=== PATIENT | male | born 1965 | race Caucasian/White ===

== ENCOUNTER 2023-06-16 05:18 | Inpatient (IN) | payer OTHER ==
[2023-06-09 11:56] LABS: BILIRUBIN,URINE NEGATIVE (Neg); CLARITY,URINE CLEAR (Clear); COLOR,URINE YELLOW (Yellow); GLUCOSE, URINE 250 mg/dl (Neg); KETONES,URINE TRACE mg/dl (Neg); LEUKOCYTE ESTERASE ,URINE NEGATIVE (Neg); NITRITES, URINE NEGATIVE (Neg); OCCULT BLOOD,URINE NEGATIVE (Neg); PH,URINE 7.5 (4.8-8.0); PROTEIN,URINE NEGATIVE (Neg); UROBILINOGEN,URINE 0.2 E.U/dL (0.2-1.0)
[2023-06-09 12:00] LABS: UA COLLECTION TYPE VOIDED
[2023-06-09 12:06] LABS: BASOPHILS # (AUTO) 0.1 X10'3 (0-0.2); EOSINOPHILS # (AUTO) 0.2 X10'3 (0-0.9); EOSINOPHILS % (AUTO) 2.7 % (0-6); LYMPHOCYTES # (AUTO) 0.9 X10'3 (1.1-4.8); MEAN CORPUSCULAR HEMOGLOBIN 32.4 PG (27.0-31.0); MEAN CORPUSCULAR HGB CONC 34.4 g/dL (33.0-36.5); MEAN CORPUSCULAR VOLUME 94.1 FL (78-98); MEAN PLATELET VOLUME 7.4 FL (7.4-10.4); MONOCYTES # (AUTO) 0.5 X10'3 (0-0.9); MONOCYTES % (AUTO) 8.4 % (2-12); NEUTROPHILS # (AUTO) 3.9 X10'3 (1.8-7.7); NEUTROPHILS % (AUTO) 71.9 % (42-75); PRE OP HEMATOCRIT 44.1 % (42.0-52.0); PRE OP HEMOGLOBIN 15.2 g/dL (14.0-17.9); PRE OP PLATELET COUNT 238 X10'3 (140-440); PRE OP WHITE BLOOD COUNT 5.5 10'3 (4.8-10.8); RED BLOOD COUNT 4.68 X10'6 (4.70-6.10); RED CELL DISTRIBUTION WIDTH 12.9 % (11.5-14.5)
[2023-06-09 12:26] LABS: PRE OP PROTIME 10.8 SECONDS (9.0-12.0)
[2023-06-09 12:31] LABS: ALBUMIN 3.3 G/DL (3.4-5.0); ALBUMIN/GLOBULIN RATIO 0.8 (1.1-1.5); ALKALINE PHOSPHATASE 68 IU/L (46-116); BLOOD UREA NITROGEN 13 MG/DL (7-18); BUN/CREATININE RATIO 10.4 (10.0-20.0); CALCIUM 9.2 MG/DL (8.5-10.1); CHLORIDE 101 MMOL/L (99-107); CREATININE 1.25 MG/DL (0.60-1.10); PRE OP ALT 34 U/L (30-65); PRE OP ANION GAP 9 (8-16); PRE OP AST 19 U/L (10-37); PRE OP BILIRUB, TOTAL 0.5 MG/DL (0.0-1.0); PRE OP POTASSIUM 3.7 MMOL/L (3.4-5.1); PRE OP SODIUM 138 MMOL/L (135-145); TOTAL CARBON DIOXIDE 27.6 MMOL/L (24-32); TOTAL PROTEIN 7.5 G/DL (6.4-8.2); eGFR 59 ML/MIN
[2023-06-09 13:02] LABS: PRE OP GLUCOSE 202 MG/DL (70-104)
[~2023-06-16] VITALS: Ht 182.9 cm; Wt 133.7 kg
[2023-06-16] VITALS (31 sets, daily range): BP systolic 100–156; BP diastolic 43–80; PULSE 53–69; RESP 12–16; TEMP 97.1–99.3; O2SAT 92–98
[~2023-06-16 05:18] MED LIST: AMLO-708 PO; AZIL1TAB2 PO; BISO10TA16 PO; EZET10TA6 PO; FLUV40CA6 PO; METF-900 PO
[2023-06-16] MEDS ORDERED: ringers solution, lacted 1,000 ML IV SCH ×2 (05:30→09:40)
[2023-06-16] MEDS ORDERED: ceFOXitin 2GM-NS 100mL ADDvant 100 ML IV ONE (05:30)
[2023-06-16] MEDS ORDERED: DOCUMENT DATE & TIME OF BETA-BLOCKER PO ONE (05:30)
[2023-06-16] MEDS ORDERED: famotidine 20mg tablet PO ONE (05:30)
[2023-06-16] MEDS ORDERED: iohexol 350MG/ML 100ml bottle IV ONE (06:12)
[2023-06-16] MEDS ORDERED: BUPIVAcaine 2.5mg/ml inj 50ml vial (contains preservative) ONE (06:12)
[2023-06-16] MEDS ORDERED: insulin regular, human 10 units/0.1 ml syringe SQ ONE (06:30)
[2023-06-16] MEDS ORDERED: sevoflurane 250ml liquid IH ONE (06:42)
[2023-06-16] MEDS ORDERED: midazolam 1 mg/ML 2ml injection ONE (06:44)
[2023-06-16] MEDS ORDERED: fentaNYL /PF 50mcg/ml 5ml ampule ONE (06:44)
[2023-06-16] MEDS ORDERED: naloxone 0.4 mg/ml inj IV PRN (06:50)
[2023-06-16] MEDS: normal saline 1000ml 1,000 ML IV SCH (06:50)
[2023-06-16] MEDS ORDERED: Potassium Cl inj 20 MEQ in normal saline 1000ml 990 ML IV SCH (06:50)
[2023-06-16] MEDS ORDERED: LIDOcaine 2% (20mg/ml) 5ml vial ONE (07:12)
[2023-06-16] MEDS ORDERED: rocuronium 10mg/ml inj IV ONE ×3 (07:12→09:26)
[2023-06-16] MEDS ORDERED: propofol inj 20 ML IV ONE (07:12)
[2023-06-16] MEDS ORDERED: MEPIVAcaine /PF 20mg/ml 20ml SDV ONE (07:26)
[2023-06-16] MEDS ORDERED: tetracaine 1% (10mg/ml) pres. free inj. ONE (07:27)
[2023-06-16] MEDS ORDERED: dexmedetomidine 200mcg/2ml inj. IV ONE (07:27)
[2023-06-16] MEDS: docusate sod 100mg capsule PO SCH ×2 (08:00→20:00)
[2023-06-16] MEDS: sennosides/docusate sodium tablet PO SCH ×2 (08:00→20:00)
[2023-06-16] MEDS ORDERED: ceFOXitin inj 1,000 MG in normal saline 100ml IV soln 100 ML IV SCH (08:00)
[2023-06-16] MEDS ORDERED: BUPIVAcaine/PF 2.5mg/ml (0.25%) 10ml vial ONE (08:08)
[2023-06-16] MEDS ORDERED: BUPIVACAINE liposomal/PF 13.3 MG/ML vial IM ONE ×2 (08:08→08:16)
[2023-06-16] MEDS ORDERED: dexamethasone sod phosphate 4mg/ml inj. ONE (09:26)
[2023-06-16] MEDS ORDERED: ondansetron/PF 4mg/2ml inj ONE (09:26)
[2023-06-16] MEDS ORDERED: glycopyrrolate 0.2mg/ml inj ONE (09:27)
[2023-06-16] MEDS ORDERED: neostigmine methylsulfate 1 MG/ML 10ml vial ONE (09:27)
[2023-06-16] MEDS ORDERED: ondansetron/PF 4mg/2ml inj IV PRN (09:40)
[2023-06-16] MEDS ORDERED: proCHLORperazine 10 MG/2 ml inj IV PRN (09:40)
[2023-06-16] MEDS ORDERED: ketorolac tromethamine 15mg/ml inj. IV ONE (09:40)
[2023-06-16] MEDS ORDERED: labetalol 20mg/4ml (5mg/ml) syringe IV PRN (09:40)
[2023-06-16] MEDS ORDERED: hydrALAZINE 20mg/ml inj. IV PRN (09:40)
[2023-06-16] MEDS ORDERED: meperidine/PF 25mg/ml syringe IV PRN ×3 (09:40)
[2023-06-16] MEDS ORDERED: morphine 2 MG/ML inj. syringe IV PRN (09:40)
[2023-06-16] MEDS ORDERED: morphine 4 MG/ML inj SYRINge IV PRN (09:40)
[2023-06-16] MEDS ORDERED: acetaminophen 1,000mg/100ml IV 100 ML IV ONE (09:40)
[2023-06-16] MEDS: HYDROmorph/NS 0.2 mg/ml PCA 100 ML IV SCH ×5 (09:51→23:00)
[2023-06-16] MEDS: ceFOXitin inj 1,000 MG in normal saline 100ml IV soln 100 ML IV SCH (19:07)
[2023-06-17] MEDS: ceFOXitin inj 1,000 MG in normal saline 100ml IV soln 100 ML IV SCH (00:08)
[2023-06-17] MEDS: potassium Cl 20mEq in NS 1,000 ML IV SCH ×4 (00:22→18:26)
[2023-06-17] MEDS: HYDROmorph/NS 0.2 mg/ml PCA 100 ML IV SCH ×12 (01:00→23:00)
[2023-06-17 02:00] VITALS: BP 100/55; PULSE 65; RESP 17; TEMP 97.4; O2SAT 93
[2023-06-17] MEDS ORDERED: ceFOXitin inj 1,000 MG in normal saline 100ml IV soln 100 ML IV SCH (02:45)
[2023-06-17 06:00] VITALS: BP 104/44; PULSE 61; RESP 17; TEMP 97.4; O2SAT 92
[2023-06-17 06:34] LABS: BASOPHILS % (AUTO) 0.2 % (0-1); EOSINOPHILS % (AUTO) 0 % (0-6); HEMATOCRIT 37.5 % (42.0-52.0); HEMOGLOBIN 12.8 g/dl (14.0-17.9); LYMPHOCYTES # (AUTO) 0.7 X10'3 (1.1-4.8); LYMPHOCYTES % (AUTO) 6.1 % (21-51); MEAN CORPUSCULAR HEMOGLOBIN 32.5 PG (27.0-31.0); MEAN CORPUSCULAR HGB CONC 34.1 g/dL (33.0-36.5); MEAN CORPUSCULAR VOLUME 95.5 FL (78-98); MEAN PLATELET VOLUME 7.4 FL (7.4-10.4); MONOCYTES % (AUTO) 9.5 % (2-12); NEUTROPHILS # (AUTO) 9.2 X10'3 (1.8-7.7); NEUTROPHILS % (AUTO) 84.2 % (42-75); PLATELET COUNT 219 X10'3 (140-440); RED BLOOD COUNT 3.93 X10'6 (4.70-6.10); RED CELL DISTRIBUTION WIDTH 12.9 % (11.5-14.5); WHITE BLOOD COUNT 10.9 X10'3 (4.5-11.0)
[2023-06-17 06:41] LABS: ALBUMIN 2.7 G/DL (3.4-5.0); ANION GAP 8 (8-16); BLOOD UREA NITROGEN 11 MG/DL (7-18); BUN/CREATININE RATIO 14.1 (10.0-20.0); CHLORIDE 99 MMOL/L (99-107); CREATININE 0.78 MG/DL (0.60-1.10); GLUCOSE 200 MG/DL (70-104); POTASSIUM 3.3 MMOL/L (3.5-5.1); SODIUM 135 MMOL/L (135-145); TOTAL CARBON DIOXIDE 28.5 MMOL/L (24-32); eCRCL 113 ML/MIN; eGFR > 90 ML/MIN
[2023-06-17] MEDS: docusate sod 100mg capsule PO SCH ×2 (08:28→19:24)
[2023-06-17] MEDS: sennosides/docusate sodium tablet PO SCH ×2 (08:29→19:24)
[2023-06-17] MEDS: ondansetron/PF 4mg/2ml inj IV PRN (08:44)
[2023-06-17] MEDS ORDERED: DEXTROSE 15 GM of carb/4 tabs (each vial/BOTTLE has 4 tablets) PO PRN ×2 (10:10)
[2023-06-17] MEDS ORDERED: glucagon, human recombinant 1mg kit SUBCUT PRN (10:10)
[2023-06-17] MEDS ORDERED: dextrose 50%-water 50ml dispensing syringe IV PRN ×2 (10:10)
[2023-06-17] MEDS ORDERED: MESSAGE TO PHARMACY PO ONE (10:10)
[2023-06-17 10:38] VITALS: BP 118/67; PULSE 63; RESP 15; TEMP 98.9; O2SAT 92
[2023-06-17] MEDS ORDERED: magnesium 4gm in 100ml NS 100 ML IV PRN (11:25)
[2023-06-17] MEDS ORDERED: magnesium 2GM in 50ml NS 50 ML IV PRN (11:25)
[2023-06-17] MEDS ORDERED: potassium Cl 20 mEq SR tablet PO PRN (11:25)
[2023-06-17] MEDS ORDERED: potassium Cl 40MEQ/1/2NS 520ml 520 ML IV PRN (11:25)
[2023-06-17] MEDS ORDERED: magnesium Cl slow-release 64mg tablet PO PRN (11:25)
[2023-06-17] MEDS: potassium Cl 20 mEq SR tablet PO PRN ×3 (11:50→21:39)
[2023-06-17] MEDS: insulin Lispro (HumaLOG) vial - multi-dose SQ SCH ×2 (13:18→19:29)
[2023-06-17 18:00] VITALS: BP 118/61; PULSE 72; RESP 16; TEMP 99.1; O2SAT 92
[2023-06-17] MEDS: enoxaparin 40mg/0.4ml syringe SUBCUT SCH (19:24)
[2023-06-17] MEDS: K and/or MAG REPLACEMENT MC SCH (20:00)
[2023-06-17 20:10] VITALS: RESP 16; O2SAT 91
[2023-06-17] MEDS ORDERED: bisoprolol 5mg tablet PO PRN (21:00)
[2023-06-17] MEDS: atorvastatin 10mg tablet PO SCH (21:40)
[2023-06-17] MEDS: insulin glargine (Lantus) pen - multi-dose SQ SCH (21:46)
[2023-06-17 22:00] VITALS: BP 127/59; PULSE 71; RESP 20; TEMP 98.4; O2SAT 92
[2023-06-18] MEDS: HYDROmorph/NS 0.2 mg/ml PCA 100 ML IV SCH ×12 (01:00→23:00)
[2023-06-18] MEDS: potassium Cl 20mEq in NS 1,000 ML IV SCH ×3 (02:02→19:21)
[2023-06-18 06:00] VITALS: BP 147/79; PULSE 73; RESP 18; TEMP 97.7; O2SAT 93
[2023-06-18] MEDS: normal saline 1000ml 1,000 ML IV SCH (06:50)
[2023-06-18 07:35] LABS: BASOPHILS % (AUTO) 0.3 % (0-1); EOSINOPHILS # (AUTO) 0.1 X10'3 (0-0.9); LYMPHOCYTES # (AUTO) 0.8 X10'3 (1.1-4.8); MEAN CORPUSCULAR HEMOGLOBIN 32.7 PG (27.0-31.0); MEAN CORPUSCULAR HGB CONC 34.3 g/dL (33.0-36.5); MEAN CORPUSCULAR VOLUME 95.3 FL (78-98); MEAN PLATELET VOLUME 7.3 FL (7.4-10.4); MONOCYTES # (AUTO) 0.8 X10'3 (0-0.9); MONOCYTES % (AUTO) 9.3 % (2-12); NEUTROPHILS # (AUTO) 6.7 X10'3 (1.8-7.7); NEUTROPHILS % (AUTO) 79.4 % (42-75); PLATELET COUNT 214 X10'3 (140-440); RED BLOOD COUNT 3.99 X10'6 (4.70-6.10); WHITE BLOOD COUNT 8.5 X10'3 (4.5-11.0)
[2023-06-18 07:50] LABS: ALBUMIN 2.7 G/DL (3.4-5.0); ANION GAP 5 (8-16); BLOOD UREA NITROGEN 8 MG/DL (7-18); BUN/CREATININE RATIO 11.8 (10.0-20.0); CALCIUM 8.5 MG/DL (8.5-10.1); CHLORIDE 102 MMOL/L (99-107); CREATININE 0.68 MG/DL (0.60-1.10); GLUCOSE 132 MG/DL (70-104); POTASSIUM 3.5 MMOL/L (3.5-5.1); SODIUM 137 MMOL/L (135-145); TOTAL CARBON DIOXIDE 30.1 MMOL/L (24-32); eCRCL 130 ML/MIN; eGFR > 90 ML/MIN
[2023-06-18] MEDS ORDERED: CHLORTHALIDONE PO PRN (08:00)
[2023-06-18] MEDS ORDERED: AZILSARTAN PO PRN (08:00)
[2023-06-18] MEDS: K and/or MAG REPLACEMENT MC SCH ×2 (08:00→20:00)
[2023-06-18] MEDS ORDERED: [UNRECOGNIZED DRUG - OTHER] PO PRN (08:00)
[2023-06-18] MEDS ORDERED: ezetimibe 10mg tablet PO PRN (08:00)
[2023-06-18] MEDS: sennosides/docusate sodium tablet PO SCH ×2 (09:33→19:22)
[2023-06-18] MEDS: amLODIPine 5mg tablet PO SCH (09:34)
[2023-06-18] MEDS: docusate sod 100mg capsule PO SCH ×2 (09:34→19:22)
[2023-06-18] MEDS: insulin Lispro (HumaLOG) vial - multi-dose SQ SCH ×2 (09:56→13:49)
[2023-06-18 10:00] VITALS: BP 149/73; PULSE 68; RESP 18; TEMP 97.6; O2SAT 91
[2023-06-18] MEDS: ondansetron/PF 4mg/2ml inj IV PRN (13:58)
[2023-06-18] MEDS: PCA WASTE DOCUMENTATION 1 MG ML MC SCH (17:34)
[2023-06-18 18:00] VITALS: BP 163/77; PULSE 98; RESP 20; TEMP 97.9; O2SAT 94
[2023-06-18 19:00] VITALS: RESP 20; O2SAT 94
[2023-06-18] MEDS: simethicone 80mg chew tab PO PRN (19:22)
[2023-06-18] MEDS: enoxaparin 40mg/0.4ml syringe SUBCUT SCH (19:23)
[2023-06-18] MEDS: atorvastatin 10mg tablet PO SCH (21:17)
[2023-06-18] MEDS: insulin glargine (Lantus) pen - multi-dose SQ SCH (21:21)
[2023-06-18 22:00] VITALS: BP 174/80; PULSE 80; RESP 20; TEMP 98.8; O2SAT 94
[2023-06-19] MEDS: HYDROmorph/NS 0.2 mg/ml PCA 100 ML IV SCH ×12 (01:00→23:00)
[2023-06-19] MEDS: potassium Cl 20mEq in NS 1,000 ML IV SCH ×3 (02:00→20:17)
[2023-06-19] MEDS: simethicone 80mg chew tab PO PRN (03:09)
[2023-06-19] MEDS: K and/or MAG REPLACEMENT MC SCH ×2 (06:57→20:00)
[2023-06-19 07:00] VITALS: BP 143/81; PULSE 80; RESP 18; TEMP 98.7; O2SAT 91
[2023-06-19 07:14] LABS: BASOPHILS % (AUTO) 0.4 % (0-1); EOSINOPHILS # (AUTO) 0.2 X10'3 (0-0.9); EOSINOPHILS % (AUTO) 2.4 % (0-6); HEMATOCRIT 39.4 % (42.0-52.0); HEMOGLOBIN 13.6 g/dl (14.0-17.9); LYMPHOCYTES # (AUTO) 0.7 X10'3 (1.1-4.8); LYMPHOCYTES % (AUTO) 8.9 % (21-51); MEAN CORPUSCULAR HEMOGLOBIN 32.7 PG (27.0-31.0); MEAN CORPUSCULAR HGB CONC 34.5 g/dL (33.0-36.5); MEAN CORPUSCULAR VOLUME 94.7 FL (78-98); MEAN PLATELET VOLUME 7.1 FL (7.4-10.4); MONOCYTES # (AUTO) 0.7 X10'3 (0-0.9); MONOCYTES % (AUTO) 8.4 % (2-12); NEUTROPHILS # (AUTO) 6.7 X10'3 (1.8-7.7); NEUTROPHILS % (AUTO) 79.9 % (42-75); PLATELET COUNT 229 X10'3 (140-440); RED BLOOD COUNT 4.17 X10'6 (4.70-6.10); RED CELL DISTRIBUTION WIDTH 12.8 % (11.5-14.5); WHITE BLOOD COUNT 8.4 X10'3 (4.5-11.0)
[2023-06-19 07:24] LABS: ALBUMIN 2.5 G/DL (3.4-5.0); ANION GAP 5 (8-16); BLOOD UREA NITROGEN 4 MG/DL (7-18); BUN/CREATININE RATIO 6.6 (10.0-20.0); CALCIUM 8.5 MG/DL (8.5-10.1); CHLORIDE 103 MMOL/L (99-107); CREATININE 0.61 MG/DL (0.60-1.10); GLUCOSE 124 MG/DL (70-104); POTASSIUM 3.5 MMOL/L (3.5-5.1); SODIUM 137 MMOL/L (135-145); TOTAL CARBON DIOXIDE 29.1 MMOL/L (24-32); eCRCL 145 ML/MIN; eGFR > 90 ML/MIN
[2023-06-19] MEDS: docusate sod 100mg capsule PO SCH ×2 (07:48→20:14)
[2023-06-19] MEDS: amLODIPine 5mg tablet PO SCH (07:49)
[2023-06-19] MEDS: sennosides/docusate sodium tablet PO SCH ×2 (08:02→20:14)
[2023-06-19] MEDS: insulin Lispro (HumaLOG) vial - multi-dose SQ SCH (09:18)
[2023-06-19 10:00] VITALS: BP 155/81; PULSE 74; RESP 18; TEMP 98.4; O2SAT 92
[2023-06-19 11:52] VITALS: RESP 16; O2SAT 93
[2023-06-19] MEDS ORDERED: atenolol 50mg tablet PO PRN (17:20)
[2023-06-19 18:00] VITALS: BP 183/90; PULSE 83; RESP 20; TEMP 98.8; O2SAT 91
[2023-06-19 19:00] VITALS: RESP 20; O2SAT 91
[2023-06-19] MEDS: enoxaparin 40mg/0.4ml syringe SUBCUT SCH (20:13)
[2023-06-19] MEDS: atorvastatin 10mg tablet PO SCH (20:29)
[2023-06-19] MEDS: diatr meglu/diatrizoate 30ml oral sol.-(3 dose) bottle PO SCH (20:33)
[2023-06-19] MEDS: insulin glargine (Lantus) pen - multi-dose SQ SCH (21:27)
[2023-06-19 22:00] VITALS: BP 146/74; PULSE 80; RESP 18; TEMP 99; O2SAT 92
[2023-06-20] MEDS: HYDROmorph/NS 0.2 mg/ml PCA 100 ML IV SCH ×12 (01:00→23:00)
[2023-06-20] MEDS: potassium Cl 20mEq in NS 1,000 ML IV SCH ×3 (02:36→22:03)
[2023-06-20 06:44] LABS: ALBUMIN 2.6 G/DL (3.4-5.0); ANION GAP 8 (8-16); BLOOD UREA NITROGEN 6 MG/DL (7-18); BUN/CREATININE RATIO 9.4 (10.0-20.0); CALCIUM 8.7 MG/DL (8.5-10.1); CHLORIDE 102 MMOL/L (99-107); CREATININE 0.64 MG/DL (0.60-1.10); GLUCOSE 132 MG/DL (70-104); POTASSIUM 3.7 MMOL/L (3.5-5.1); SODIUM 139 MMOL/L (135-145); TOTAL CARBON DIOXIDE 29.1 MMOL/L (24-32); eCRCL 138 ML/MIN; eGFR > 90 ML/MIN
[2023-06-20] MEDS: normal saline 1000ml 1,000 ML IV SCH (06:50)
[2023-06-20 06:55] LABS: BASOPHILS % (AUTO) 0.3 % (0-1); EOSINOPHILS # (AUTO) 0.2 X10'3 (0-0.9); EOSINOPHILS % (AUTO) 2.7 % (0-6); HEMATOCRIT 43.1 % (42.0-52.0); HEMOGLOBIN 14.8 g/dl (14.0-17.9); LYMPHOCYTES # (AUTO) 0.6 X10'3 (1.1-4.8); LYMPHOCYTES % (AUTO) 6.4 % (21-51); MEAN CORPUSCULAR HEMOGLOBIN 32.8 PG (27.0-31.0); MEAN CORPUSCULAR HGB CONC 34.3 g/dL (33.0-36.5); MEAN CORPUSCULAR VOLUME 95.5 FL (78-98); MEAN PLATELET VOLUME 7.5 FL (7.4-10.4); MONOCYTES # (AUTO) 0.7 X10'3 (0-0.9); MONOCYTES % (AUTO) 7.8 % (2-12); NEUTROPHILS # (AUTO) 7.7 X10'3 (1.8-7.7); NEUTROPHILS % (AUTO) 82.8 % (42-75); PLATELET COUNT 261 X10'3 (140-440); RED BLOOD COUNT 4.51 X10'6 (4.70-6.10); RED CELL DISTRIBUTION WIDTH 12.7 % (11.5-14.5); WHITE BLOOD COUNT 9.2 X10'3 (4.5-11.0)
[2023-06-20 07:02] VITALS: BP 134/64; PULSE 65; RESP 20; TEMP 98.9; O2SAT 92
[2023-06-20] MEDS: sennosides/docusate sodium tablet PO SCH ×2 (07:13→19:27)
[2023-06-20] MEDS: diatr meglu/diatrizoate 30ml oral sol.-(3 dose) bottle PO SCH ×2 (07:13→12:40)
[2023-06-20] MEDS: amLODIPine 5mg tablet PO SCH (07:14)
[2023-06-20] MEDS: docusate sod 100mg capsule PO SCH ×2 (07:14→19:27)
[2023-06-20] MEDS: K and/or MAG REPLACEMENT MC SCH ×2 (08:00→20:00)
[2023-06-20 09:22] VITALS: RESP 18; O2SAT 96
[2023-06-20 10:00] VITALS: BP 135/68; PULSE 70; RESP 14; TEMP 97.6; O2SAT 92
[2023-06-20] MEDS: ondansetron/PF 4mg/2ml inj IV PRN (11:30)
[2023-06-20 18:00] VITALS: BP 165/80; PULSE 108; RESP 16; TEMP 99.1; O2SAT 92
[2023-06-20 19:00] VITALS: RESP 15; O2SAT 93
[2023-06-20] MEDS ORDERED: mag hydrox/Alum hydrox/simeth 30ml oral suspension PO ONE (19:10)
[2023-06-20] MEDS: enoxaparin 40mg/0.4ml syringe SUBCUT SCH (19:28)
[2023-06-20] MEDS: atorvastatin 10mg tablet PO SCH (21:56)
[2023-06-20] MEDS: metoclopramide 5 mg/ml inj IV SCH (21:56)
[2023-06-20] MEDS: insulin glargine (Lantus) pen - multi-dose SQ SCH (21:59)
[2023-06-20 22:00] VITALS: BP 144/72; PULSE 62; RESP 18; TEMP 99.6; O2SAT 93
[2023-06-21] MEDS: HYDROmorph/NS 0.2 mg/ml PCA 100 ML IV SCH ×4 (01:00→07:00)
[2023-06-21] MEDS: potassium Cl 20mEq in NS 1,000 ML IV SCH (04:24)
[2023-06-21] MEDS: metoclopramide 5 mg/ml inj IV SCH ×4 (04:24→21:41)
[2023-06-21 06:00] VITALS: BP 138/68; PULSE 66; RESP 16; TEMP 98.9; O2SAT 96
[2023-06-21 06:09] LABS: BASOPHILS % (AUTO) 0.2 % (0-1); EOSINOPHILS # (AUTO) 0.3 X10'3 (0-0.9); EOSINOPHILS % (AUTO) 3.3 % (0-6); HEMATOCRIT 38.3 % (42.0-52.0); LYMPHOCYTES # (AUTO) 0.5 X10'3 (1.1-4.8); LYMPHOCYTES % (AUTO) 5.2 % (21-51); MEAN CORPUSCULAR HEMOGLOBIN 32.4 PG (27.0-31.0); MEAN CORPUSCULAR HGB CONC 33.9 g/dL (33.0-36.5); MEAN CORPUSCULAR VOLUME 95.5 FL (78-98); MEAN PLATELET VOLUME 7.4 FL (7.4-10.4); MONOCYTES # (AUTO) 0.8 X10'3 (0-0.9); MONOCYTES % (AUTO) 9.6 % (2-12); NEUTROPHILS # (AUTO) 7.1 X10'3 (1.8-7.7); NEUTROPHILS % (AUTO) 81.7 % (42-75); PLATELET COUNT 272 X10'3 (140-440); RED BLOOD COUNT 4.01 X10'6 (4.70-6.10); RED CELL DISTRIBUTION WIDTH 12.8 % (11.5-14.5); WHITE BLOOD COUNT 8.7 X10'3 (4.5-11.0)
[2023-06-21 06:22] LABS: ALBUMIN 2.5 G/DL (3.4-5.0); ANION GAP 8 (8-16); BLOOD UREA NITROGEN 5 MG/DL (7-18); BUN/CREATININE RATIO 8.3 (10.0-20.0); CALCIUM 7.9 MG/DL (8.5-10.1); CHLORIDE 107 MMOL/L (99-107); GLUCOSE 122 MG/DL (70-104); SODIUM 140 MMOL/L (135-145); TOTAL CARBON DIOXIDE 25.4 MMOL/L (24-32); eCRCL 147 ML/MIN; eGFR > 90 ML/MIN
[2023-06-21 06:36] LABS: POTASSIUM 3.6 MMOL/L (3.5-5.1)
[2023-06-21] MEDS: docusate sod 100mg capsule PO SCH ×2 (07:04→20:32)
[2023-06-21] MEDS: amLODIPine 5mg tablet PO SCH (07:05)
[2023-06-21] MEDS: sennosides/docusate sodium tablet PO SCH ×2 (07:05→20:32)
[2023-06-21] MEDS: K and/or MAG REPLACEMENT MC SCH ×2 (07:13→20:00)
[2023-06-21] MEDS: PCA WASTE DOCUMENTATION 1 MG ML MC SCH (08:01)
[2023-06-21 10:00] VITALS: BP 143/71; PULSE 70; RESP 14; TEMP 97.3; O2SAT 91
[2023-06-21] MEDS: oxyCODONE/APAP 10/325mg tablet PO PRN ×2 (11:20→21:43)
[2023-06-21 18:00] VITALS: BP 156/77; PULSE 70; RESP 16; TEMP 98.2; O2SAT 93
[2023-06-21] MEDS ORDERED: LACTOSE-REDUCED FOOD 237ML LIQUID PO SCH (18:00)
[2023-06-21] MEDS: insulin glargine (Lantus) pen - multi-dose SQ SCH (20:30)
[2023-06-21] MEDS: enoxaparin 40mg/0.4ml syringe SUBCUT SCH (20:31)
[2023-06-21] MEDS: atorvastatin 10mg tablet PO SCH (20:33)
[2023-06-21 22:00] VITALS: BP 145/67; PULSE 69; RESP 16; TEMP 97.7; O2SAT 96
[2023-06-22] MEDS: metoclopramide 5 mg/ml inj IV SCH (04:33)
[2023-06-22 06:00] VITALS: BP 153/62; PULSE 66; RESP 16; TEMP 97.9; O2SAT 94
[2023-06-22] MEDS: docusate sod 100mg capsule PO SCH (07:40)
[2023-06-22] MEDS: sennosides/docusate sodium tablet PO SCH (07:41)
[2023-06-22] MEDS: amLODIPine 5mg tablet PO SCH (07:42)
[2023-06-22 10:00] VITALS: BP 147/73; PULSE 67; RESP 16; TEMP 98.2; O2SAT 95
== END 2023-06-22 12:00 | disposition home or self-care (01) | DRG 330 ==
LOC: UNDOADMIN 05:18 → PAS IN 05:18 → ORTHO 4S 16:25
PROVIDERS: ADMIT Surgery; ATTEND Surgery
PROC: 07BB4ZZ Excision of Mesenteric Lymphatic, Percutaneous Endoscopic Approach (ICD-10-PCS; 2023-06-16)
PROC: BT141ZZ Fluoroscopy of Kidneys, Ureters and Bladder using Low Osmolar Contrast (ICD-10-PCS; 2023-06-16)
PROC: 3E0T3BZ Introduction of Anesthetic Agent into Peripheral Nerves and Plexi, Percutaneous Approach (ICD-10-PCS; 2023-06-16)
PROC: 0DBM4ZZ Excision of Descending Colon, Percutaneous Endoscopic Approach (ICD-10-PCS; principal; 2023-06-16 06:42)
PROC: 0T788DZ Dilation of Bilateral Ureters with Intraluminal Device, Via Natural or Artificial Opening Endoscopic (ICD-10-PCS; 2023-06-16 06:42)
DX: C18.6 Malignant neoplasm of descending colon (principal); Z68.41 Body mass index [BMI] 40.0-44.9, adult; E11.9 Type 2 diabetes mellitus without complications; N40.0 Benign prostatic hyperplasia without lower urinary tract symptoms; E66.9 Obesity, unspecified; E78.00 Pure hypercholesterolemia, unspecified; I10 Essential (primary) hypertension; Z87.442 Personal history of urinary calculi; Z82.49 Family history of ischemic heart disease and other diseases of the circulatory system; Z90.49 Acquired absence of other specified parts of digestive tract; Z85.828 Personal history of other malignant neoplasm of skin
CPT/HCPCS: Z7506; Z7508; 36415; 74176; 76000; 80048; 80053; 81003; 82948; 83036; 85025; 85610; 85730; 86885; 86900; 86901; 87081; 93005; A4215; A4615; A4618; A6258; A6449; A7000; C1758; C1769; C9290; G0378; J0131; J0670; J0694; J1100; J1170; J1650; J1815; J1885; J2175; J2250; J2405; J2704; J2710; J2765; J3010; J3480; J3490; J7120; Q9963; Q9967